=== PATIENT | male | born 1990 | race Caucasian/White ===

== ENCOUNTER 2021-10-23 06:18 | Emergency (ER) | payer OTHER, SELFPAY ==
[2021-10-23] VITALS (50 sets, daily range): BP systolic 118–150; BP diastolic 82–106; PULSE 81–124; RESP 10–28; TEMP 35.9–36.4; O2SAT 92–99
--- NOTE | ~2021-10-23 | CT_ITS ---
EXAMINATION: CTA chest PE protocol DATE: 10/23/2021 08:08 INDICATION: Hypoxia TECHNIQUE: Computed tomography (CT) pulmonary angiogram of the chest was performed with 100 mL Omnipa que-350 intravenous contrast. Additional 3D reconstructions utilizing coronal maximum intensity proje ction (MIP) were performed. Automated exposure control and iterative reconstruction technique were em ployed. The dose-length product was 645.41 mGy-cm. COMPARISON: None FINDINGS: Good contrast opacification of the pulmonary arteries. There is mild streak artifact from dense contr ast in the superior vena cava and right atrium. Mild scattered respiratory motion artifact which does not significantly limit evaluation. No pulmonary embolism. Mosaic attenuation with groundglass opaci ties in the left upper and bilateral lower lung zones. No pleural effusion or pneumothorax. Heart siz e is normal. No pericardial effusion. Thoracic aorta is normal in caliber with no dissection. No path ologically enlarged thoracic lymphadenopathy. Visual is upper abdomen is unremarkable. Chronic appear ing mild anterior wedging at a few vertebral bodies in the lower thoracic spine. Multiple Schmorl's n odes in the mid to lower thoracic spine. IMPRESSION: 1. No pulmonary embolism. 2. Mosaic attenuation with groundglass opacities in the left upper and bilateral lower lobes. Differe ntial would include atelectasis, pulmonary edema, pneumonia, hypersensitivity pneumonitis or nonspeci fic mild chronic interstitial lung disease. Reviewed, dictated and finalized at location A. IMPRESSION: 1. No pulmonary embolism. 2. Mosaic attenuation with groundglass opacities in the left upper and bilatera l lower lobes. Differential would include atelectasis, pulmonary edema, pneumon ia, hypersensitivity pneumonitis or nonspecific mild chronic interstitial lung disease.
--- NOTE | ~2021-10-23 | XR_ITS ---
EXAMINATION: XR chest 1V portable DATE: 10/23/2021 06:44 INDICATION: Cough TECHNIQUE: frontal view of the chest was obtained. COMPARISON: None FINDINGS: The lungs are clear with no focal airspace opacities, pulmonary edema, pleural effusion or pneumothor ax. The cardiomediastinal silhouette is normal. Visualized bones and soft tissues are unremarkable. IMPRESSION: 1. No acute cardiopulmonary disease. Reviewed, dictated and finalized at location A.
--- NOTE | 2021-10-23 06:31 | ED.OVERDOSE ---
HPI - Overdose General Chief Complaint: Overdose <Zehra Malcolm MD - Last Filed: 10/23/21 07:09> Stated Complaint: OD <Zehra Malcolm MD - Last Filed: 10/23/21 07:09> Time Seen by Provider: 10/23/21 06:57 <Zehra Malcolm MD - Last Filed: 10/23/21 07:09> History of Present Illness HPI Narrative: Per EMS, they were called to her house for someone found unresponsive by his girlfriend, she was unable to provide much history, EMS did not administer 4 mg IN narcan then 2mg IV narcan and had to bag the patient as he was apneic, but after the IV Narcan he did not immediately wake up, became more responsive. Patient denies any symptoms at all. <Zehra Malcolm MD - Last Filed: 10/23/21 07:09> Related Data Home Medications: Home Medications Medication Instructions Recorded Confirmed No Home Medications 10/23/21 10/23/21 <Zehra Malcolm MD - Last Filed: 10/23/21 07:09> Allergies/Adverse Reactions: Allergies Allergy/AdvReac Type Severity Reaction Status Date / Time No Known Allergies Allergy Verified 10/23/21 06:42 <Zehra Malcolm MD - Last Filed: 10/23/21 07:09> Review of Systems Review of Systems: CONST: No fever. HEENT: No sore throat C/V: No chest pain RESP: No cough GI: No nausea or vomiting : No dysuria. M/S: No joint pain. SKIN: No rash. NEURO: [No headache or focal numbness or weakness] PSYCH: [No depression] <Zehra Malcolm MD - Last Filed: 10/23/21 07:09> [facility] Past Medical History Medical History: Medical History (Updated 10/23/21 @ 12:55 by Leobardo Denise MD) No active medical problems <Zehra Malcolm MD - Last Filed: 10/23/21 07:09> Social History Social History: Social History (Updated 10/23/21 @ 06:37 by Zehra Malcolm MD) Smoking status: Current some day smoker Alcohol intake: current Substance use: former Substance use type: opiates <Zehra Malcolm MD - Last Filed: 10/23/21 07:09> Exam Narrative: EXAMINATION OF ORGAN SYSTEMS/BODY AREAS: Constitutional: Vital signs per nursing GENERAL: Diaphoretic but currently sitting comfortably HEAD: Normal with no signs of head trauma. EYES: EOMI, conjunctiva normal ENT: Hearing grossly intact LUNGS: Nonlabored breathing. HEART: Irregularly irregular ABD: [Soft], [tender to palpation] EXT: Normal range of motion SKIN: [No rashes or lesions.] NEURO: [Alert and oriented x 3. No gross focal sensory or strength deficits.] PSYCH: Normal affect <Zehra Malcolm MD - Last Filed: 10/23/21 07:09> Course Course Emergency Course: Received signout on the patient and pending metabolization and reassessment. Labs reviewed patient was hyperglycemic he was given fluids and repeat blood sugar was improved ABG was mildly acidotic. CTA obtained due to patient's initial hypoxia and was without acute process. Additional labs ordered. Patient metabolize in the ER and on reassessment was alert and oriented she does have a history of drug abuse currently enrolled in outpatient program. Family was at bedside all results and plan reviewed with family. Given his improvement in his clinical status family and patient were comfortable continue managing his symptoms at home and follow-up with his outpatient support team. <Leobardo Denise MD - Last Filed: 10/23/21 19:12> [employer] Physician Supervision 30-year-old male presenting with unresponsive event that responded to Narcan, vital signs notable for hypoxia and tachycardia here, exam shows diaper patient who is otherwise well-appearing, without labored respirations, tachycardic. Likely opiate overdose, EKG here does show atrial fibrillation, patient has no history of this, I will obtain chest x-ray to rule out aspiration or pulmonary edema. Patient signed out to oncoming ER physician. <Zehra Malcolm MD - Last Filed: 10/23/21 07:09> Vital Signs Vital signs: Vital Signs Temperature 35.9 C L 10/23/21 06:24 Pulse Rate 124 H 10/23/21 06:24 Respiratory Rate 1
[2021-10-23 06:40] LABS: Basophils Percent Auto 0.3 % (0.2-1.2); Eosinophils Absolute Auto 0.1 K/mm3 (0-0.3); Eosinophils Percent Auto 0.6 % (0-4.4); Hematocrit 43.4 % (42.0-52.0); Hemoglobin 14.5 g/dL (14.0-18.0); Immature Granulocyte Absolute 0.03 K/mm3 (0.00-0.031); Immature Granulocyte Percent A 0.3 % (0-0.5); Lymphocytes Absolute Auto 1.62 K/mm3 (0.9-3.2); Lymphocytes Percent Auto 18.5 % (18.3-44.2); Mean Corpuscular HGB Conc 33.4 g/dl (32-36); Mean Corpuscular Hemoglobin 29.9 pg (26-34); Mean Corpuscular Volume 89.5 fl (80-100); Mean Platelet Volume 9.8 fl (7.4-10.4); Monocytes Absolute Auto 0.5 K/mm3 (0.1-0.6); Monocytes Percent Auto 6.1 % (2.6-8.5); Neutrophils Absolute Auto 6.5 K/mm3 (1.3-6.7); Neutrophils Percent Auto 74.2 % (45.5-73.1); Platelet Count Result 276 k/mm3 (150-375); Red Blood Count 4.85 M/mm3 (4.6-6.20); Red Cell Distribution Width 12.8 % (11.5-14.5); White Blood Count 8.8 K/mm3 (4.5-10.0)
[2021-10-23] MEDS: SODIUM CHLORIDE 0.9% IV 1,000 ML 999 ML IV CONT ×2 (06:49→10:10)
[2021-10-23] MEDS: ONDANSETRON INJ 4 MG/2 ML VIAL IV PUSH ×2 (06:49→07:35)
[2021-10-23 06:50] LABS: Alanine Aminotransferase 15 U/L (6-50); Albumin Level 4.8 g/dL (3.5-5.1); Alkaline Phosphatase 73 U/L (38-126); Anion Gap 10 mmol/L (8-16); Aspartate Amino Transferase 24 U/L (17-59); Bilirubin,Total 1.3 mg/dL (0.2-1.3); Blood Urea Nitrogen 16 mg/dL (9-20); Calcium 8.4 mg/dL (8.4-10.2); Carbon Dioxide 23 mmol/L (22-30); Chloride 102 mmol/L (98-107); Estimated CRCL calculation 112 ml/min; Estimated Glomerular Filt Rate > 60; Glucose 320 mg/dL (65-110); Magnesium 2.1 mg/dL (1.6-2.3); Potassium 3.3 mmol/L (3.4-5.0); Sodium 135 mmol/L (137-145)
--- NOTE | 2021-10-23 06:51 | ECG_ITS ---
Measurements Intervals Horatio Rate: 110 P: OK: 0 QRS: 22 QRSD: 106 T: 2 QT: 356 QTc: 483 Interpretive Statements ATRIAL FIBRILLATION WITH RAPID VENTRICULAR RESPONSE BORDERLINE T WAVE ABNORMALITY- INFERIOR LEADS ABNORMAL ECG Electronically Signed On 10-23-2021 6:56:42 CDT by Darrius Yanes D.O.
--- NOTE | 2021-10-23 07:18 | PC.NURSE ---
Assumed care of pt, pt is sleeping and arousable to painful stimuli. Pt has 2 L NC O2 on and pt remains diaphoretic and fatigued. Slurred speech, pinpoint pupils. Pt continues to deny drug use. Pt attempting to give u/a sample at this time. Pt on tele monitor and per Alex GREGORY during bedside report has new AFIB (no history of).
[2021-10-23 07:49] LABS: Add Urine Microscopic? YES; Appearance Urine Clear (Clear); Bilirubin Urine Negative (Negative); Blood Urine Negative (Negative); Color Urine Yellow (Yellow); Glucose Urine UA 1+ mg/dL (Negative); Ketones Urine Trace mg/dL (Negative); Leukocyte Esterase Ur Negative LEU/UL (Negative); Nitrate Urine Negative (Negative); Protein Urine 1+ mg/dL (Negative); Specific Grav Ur >= 1.030 (1.001-1.035); Urobilinogen Urine 0.2 mg/dL (<2.0)
--- NOTE | 2021-10-23 07:49 | PC.NURSE ---
Spoke to mother on phone w/ pts permission to let her know he was here and they are running tests.
[2021-10-23 07:58] LABS: Mucus Urine Rare /lpf; WBC Urine 0-3 /hpf
[2021-10-23 08:03] LABS: Barbiturate Screen Urine Negative (Negative); Benzodiazepines Screen Urine Negative (Negative)
[2021-10-23 08:09] LABS: Cannabinoid Screen Urine Negative (Negative); Cocaine Screen Urine Negative (Negative); Methadone Screen Urine Negative (Negative); Opiate Screen Urine Negative (Negative); Phencyclidine Screen Urine Negative (Negative)
--- NOTE | 2021-10-23 09:12 | PC.NURSE ---
EDP Dr Denise at bedside to discuss POC at this time.
[2021-10-23 09:17] LABS: Amphetamine Screen Urine Positive (Negative)
[2021-10-23 10:10] LABS: Alveolar/Arterial O2 Gradient 59.1 mmHg; Base Excess ABG -2.7 mEq/l (+/-2.0); Device NASAL CANNULA; Fractional Inspired Oxygen 28 %; HCO3 ABG 24.4 mEq/l (22.0-26.0); Modified Allen's Test Pass; Oxygen Content ABG 19.9 %vol (16.0-22.0); Oxygen Saturation ABG 94.5 % (95.0-100.0); Oxyhemoglobin 93.6 % THb (90.0-100.0); PCO2 ABG 51.4 mmHg (35.0-45.0); PO2 ABG 79.9 mmHg (80.0-100.0); PO2 FiO2 Ratio Arterial Blood 2.85 %; Site Drawn LEFT RADIAL; Total Hemoglobin 15.1 g/dL (12.0-18.0); pH ABG 7.295 (7.350-7.450)
[2021-10-23 10:19] LABS: Ethanol < 10 mg/dL (<10)
--- NOTE | 2021-10-23 10:31 | PC.NURSE ---
EDP Dr Denise at bedside discussing results and POC w/ pt and pts father at bedside (pt gave verbal permission to give results in front of family member at bedside).
--- NOTE | 2021-10-23 11:00 | PC.NURSE ---
nasal airway removed from pts left nare
[2021-10-23 12:05] LABS: Glucose Point of Care 120 mg/dl (65-105)
== END 2021-10-23 13:14 | disposition home or self-care (01) ==
PROVIDERS: Emergency Medicine; Emergency Provider Emergency Medicine
DX: T50.904A Poisoning by unspecified drugs, medicaments and biological substances, undetermined, initial encounter (principal); F19.10 Other psychoactive substance abuse, uncomplicated; R09.02 Hypoxemia; R73.9 Hyperglycemia, unspecified; F17.200 Nicotine dependence, unspecified, uncomplicated; I48.91 Unspecified atrial fibrillation; R94.31 Abnormal electrocardiogram [ECG] [EKG]
CPT/HCPCS: 36415; 36600; 51701; 71045; 71275; 80053; 80307; 81001; 82010; 82805; 82948; 83735; 85025; 93005; 96361; 96374; 96376; 99284; J2405; J7030; Q9967